=== PATIENT | male | born 1975 | race Caucasian/White ===

== ENCOUNTER 2020-01-14 09:26 | Emergency (ER) | payer OTHER ==
[~2020-01-14] VITALS: Ht 188 cm; Wt 104.0 kg
[2020-01-14 09:31] VITALS: BP 129/81
[2020-01-14] MEDS ORDERED: PROPARACAINE OPHTH 0.5%, 15ML ONE (09:39)
[2020-01-14] MEDS ORDERED: FLUORESCEIN OPHTHALMIC 1 MG STRIP ONE (09:39)
--- NOTE | 2020-01-14 09:49 | NUR ---
BREAK RN: THIS IS A 44 YEAR OLD MALE WHO C/O OF F.O IN LEFT EYE.
--- NOTE | 2020-01-14 10:10 | NUR ---
EDMD AT BEDSIDE TO EVALUATE AT THIS TIME.
--- NOTE | 2020-01-14 11:58 | NUR ---
TRAIN RESERVATION CLERK: FIRST CONTACT WITH PT. Patient/Caregiver given discharge instructions and they have confirmed that they understand the instructions. Patient ambulatory with steady gait. PT LEFT WITH ALL PERSONAL BELONGINGS.
== END 2020-01-14 12:00 | disposition home or self-care (01) ==
LOC: ED 09:54
DX: T15.02XA Foreign body in cornea, left eye, initial encounter (principal); X58.XXXA Exposure to other specified factors, initial encounter; Y93.89 Activity, other specified; Y92.89 Other specified places as the place of occurrence of the external cause; Y99.8 Other external cause status
CPT/HCPCS: 65222; 99284